=== PATIENT | female | born 1935 | race Caucasian/White ===

== ENCOUNTER 2020-01-04 14:38 | Outpatient (CLI) | payer MEDICARE, OTHER, SELFPAY ==
--- NOTE | 2020-01-04 15:00 | USCV_ITS ---
Linh Mares Age: 84 Gender: F : 1935 Exam Date: 01/04/2020 14:34 Ordering Phys: Linh RamirezP-C STEREO COMPILER Technologist: Heather Couch Exam Location: [facility] [place] Indication: RIGHT ARM SWELLING HISTORY: Upper extremity swelling. PROCEDURES: Venous duplex imaging was performed in only the right upper extremity. The following venous structures were evaluated: internal jugular vein, subclavian vein, axillary vein, and brachial veins. In addition, the basilic vein, cephalic vein, radial vein, and ulnar vein. FINDINGS: Normal 2-D, color Doppler and phasicity noted in ther right upper extremity venous system extending from the right internal jugular vein through the main forearm. No thrombosis or occlusion noted. CONCLUSIONS No evidence of thrombus of the right upper extremity veins. Jt Arenas MD (Electronically Signed) Final Date: 04 January 2020 17:29 S
== END 2020-01-04 14:39 | disposition home or self-care (01) ==
LOC: US 14:39
PROVIDERS: PCP Nurse Practitioner Family; Visit Provider Nurse Practitioner Family
DX: R22.31 Localized swelling, mass and lump, right upper limb (principal)
CPT/HCPCS: 93971

== ENCOUNTER 2021-02-12 17:55 | Observation (INO) | payer MEDICARE, OTHER, SELFPAY ==
[2021-02-12 18:21] VITALS: BP 132/67; PULSE 63; RESP 18; TEMP 36.6; O2SAT 97
--- NOTE | 2021-02-12 18:27 | ECG_ITS ---
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 Measurements Intervals [place] Rate: 65 P: 21 OK: 173 QRS: -32 QRSD: 141 T: 10 QT: 460 QTc: 479 Interpretive Statements ELECTRONIC VENTRICULAR [id number] V paced rhythm ABNORMAL RHYTHM ECG Compared to ECG 02/12/2021 18:11:37 No significant changes Electronically Signed On 02-13-2021 22:44:17 CDT by Bravo Amos M.D. [id number]
--- NOTE | 2021-02-12 18:27 | XRR_ITS ---
PROCEDURE INFORMATION: Exam: XR Chest Exam date and time: 02/12/2021 6:27 PM Age: 85 years old Clinical indication: Pain; Chest pressure; Additional info: Chest pain TECHNIQUE: Imaging protocol: XR of the chest. Views: 1 view. COMPARISON: No relevant prior studies available. FINDINGS: Tubes, catheters and devices: Intact dual lead left subclavian pacemaker. Lungs: Mild interstitial prominence in both lungs is likely chronic change. No consolidation. Pleural spaces: Unremarkable. No pleural effusion. No pneumothorax. Heart/Mediastinum: Unremarkable. No cardiomegaly. Vasculature: Partially visualized IVC filter. Bones/joints: Sternotomy wires. Degenerative changes of the shoulder joints. XR/XR chest 1V portable [id number] IMPRESSION: No acute findings. Radiation Dose CTDIVOL = (mGy): DLP = (mGy-cm)
[2021-02-12] MEDS: nitroglycerin 1 gm/inch oint Pkt 0.5 INCH TOPICAL (18:44)
[2021-02-12 18:45] LABS: Basophils # 0.1 10^3/uL (0.0-0.1); Basophils % 1.3 %; Eosinophils # 0.1 10^3/uL (0.0-0.8); Eosinophils % 1.1 %; Hemoglobin 12.2 g/dL (11.5-15.3); Lymphocytes % 32.3 %; Mean Corpuscular Hemoglobin 29.9 pg (28.0-34.0); Mean Corpuscular Volume 90.7 fl (81-99); Mean Platelet Volume 11.7 fL (7.4-10.4); Monocytes # 0.6 10^3/uL (0.2-0.9); Monocytes % 9.2 %; Neutrophils # 3.54 10^3/uL (1.8-7.7); Neutrophils % 55.9 %; Nucleated Red Blood Cells % 0 %; Platelet Count 146 10^3/cmm (130-400); Red Blood Count 4.08 10^6/uL (4.1-5.3); Red Cell Distribution Width 15.1 % (12.1-15.1); White Blood Count 6.3 10^3/uL (4.0-10.0)
--- NOTE | 2021-02-12 18:49 | ED_ITS ---
HPI - General Adult General: Chief complaint: Chest Pain Stated complaint: CHEST PRESSURE L SIDE Time Seen by Provider: 02/12/21 18:25 History of Present Illness: HPI narrative: CC: Chest Pain HPI: This is a [85]yo patient hx of HTN, CAD s/ p stent x 4, pacemaker dependence, HTN presenting to the ED w/ acute onset intermittent substernal sharp chest pain x3 episodes lasting for 5-10 minutes at a time around 4pm while cleaning her house. Pain is a very typical prior presentation of cardiac chest pain. Has exertional fatigue for the last 5 days. Pain is not tearing in nature and does not radiate to the back. Endorse nausea but has no associated with vo miting or decreased PO intake. Denies any recent sympathomimetic drug use. Patient denies any cough. Denies palpitations, syncope symptoms. Pain not positional. Norecent immobility, surgery, unilateral leg swelling, or prior PE. Patient denies any orthopnea, paroxysmal nocturnal dyspnea, weight gain, or increased leg swellings. Onset: 4 hrs ago Duration: ongoing for the last 4 days Location: home Severity: moderate Review of Systems Narrative: Constitutional: No fever, no chills. +fatigue HEENT: No vision changes, no sore throat. CV: +chest pain, no palpitations. PULM: No cough, no dyspnea. GI: No abdominal pain, no N/V/D. : No dysuria, no frequency, no hematuria. MSKEL: No arthralgias, no edema. SKIN: No new rashes, no lesions. NEURO: No headache, no focal weakness. HEME: No easy bleeding or bruising. PSYCH: No change in mood or affect. [facility] ED PFSH: Medical History CAD (coronary artery disease) Hypertension Social History Smoking and tobacco status: never smoked Physical Exam Narrative: EXAM NARRATIVE: Head: Atraumatic, normocephalic Eyes: PERRL, EOMI, conjunctiva without injection ENT: Throat without erythema, lesions or exudate, MMM NECK: Supple, trachea midline, no JVD LUNGS: LCTA CV: RRR, S1,S2, no murmurs, rubs, gallops. 2+ peripheral pulses in UEs ABDOMEN: Soft, nontender, nondistended, BS x4, no rigidity, no guarding, no rebound EXTREMITY: Normal ROM, no pitting edema, no calf tenderness to palpation SKIN: No rash or erythema NEURO: Awake and alert. No focal motor deficits. PSYCH: Normal mood and affect. Course Vital Signs: Vital signs: Vital Signs Temperature 97.7 F 02/13/21 16:46 Pulse Rate 67 02/13/21 16:46 Respiratory Rate 16 02/13/21 16:46 Blood Pressure 138/66 02/13/21 16:46 Pulse Oximetry 96 02/13/21 16:46 MDM - General Adult MDM Narrative: Medical decision making narrative: [85]yo patient w/ hx of CAD s/p stent x 4, HTN, pacemaker dependence presenting to the ED With acute substernal chest pain 2 hrs ago with hx of similar prior pain. Currently mild chest pain 2/10. Given History And Exam today I have moderate to high suspicion for ACS/UA/NSTEMI. Today, I have NO suspicion for pneumothorax, pneumonia, pulmonary embolus, tamponade, aortic dissection or other emergent problem as a cause for this presentation. ECG did not show any signs of acute STEMI. Workup: ECG, CXR, CBC, BMP, Troponin, dimer Intervention: ASA 325mg by EMS, nitroglycerin ointment Findings: ECG: No overt evidence of STEMI, no hyperacute T waves, localizable STD or T wave inversions. No evidence of Brugada?s sign, delta wave, epsilon wave, significantly prolonged QTc, or malignant arrhythmia. No Q waves. Troponin x 1 of 17, will trend second Dimer of 1.16, will order CTA for dissection/PE Other Labs unremarkable for emergent problems. CXR: Without PTX, PNA, or widened mediastinum [7:45pm] On reassessment, the patient is currently chest pain free. S/p aspirin 325mg by EMS. Will defer antiplatelet and anticoagulation to the inpatient team. Pending repeat troponin. HDS, AAOx3, no signs of respiratory distress, without refractory chest pain, no signs of malignant dysrhythmia on monitor car operator (VT/VF). CTA showed ascending thoracic aneurysm. Disposition: Inpatient admission. Lab Data: Labs: Lab Results 10/05/21 10/05/21 10/05/21 18:15 18:15 18:15 WBC 6.3 10^3/uL 10^3/ uL (4.0-10.0) RBC 4.08 10^6/uL L 10 ^6/uL (4.1-5.3) Hgb 12.2 g/dL g/dL (11.5-15.3) Hct 37.0 % % (37.0-47.0) MCV 90.7 fl fl (81-99) MCH 29.9 pg pg (28.0-34.0) MCHC 33.0 g/dL g/dL (30.0-36.0) RDW 15.1 % % (12.1-15.1) Plt Count 146 10^3/cmm 10^3 /cmm (130-400) MPV 11.7 fL H fL (7.4-10.4) Neut % (Auto) 55.9 % % Lymph % (Auto) 32.3 % % Kern % (Auto) 9.2 % % Eos % (Auto) 1.1 % % Baso % (Auto) 1.3 % % Neut # (Auto) 3.54 10^3/uL 10^3 /uL (1.8-7.7) Lymph # (Auto) 2.0 10^3/uL 10^3/ uL (0.8-4.8) Kern # (Auto) 0.6 10^3/uL 10^3/ uL (0.2-0.9) Eos # (Auto) 0.1 10^3/uL 10^3/ uL (0.0-0.8) Baso # (Auto) 0.1 10^3/uL 10^3/ uL (0.0-0.1) Nucleated RBC % (a uto) 0 % % Nucleated RBCs # 0.0 /100WBC /100W BC D-Dimer 1.41 ug/mIFEU H u g/mIFEU (0-0.59) Sodium 133 mmol/L L mmol /L (136-145) Potassium 3.6 mmol/L mmol/L (3.5-5.1) Chloride 94 mmol/L L mmol/ L (98-107) Carbon Dioxide 30 mmol/L H mmol/ L (22-29) Anion Gap 12.6 (5-19) BUN 22 mg/dL mg/dL (8-23) Creatinine 0.9 mg/dL mg/dL (0.5-0.9) GFR Calculation Not Reportable Glucose 83 mg/dL mg/dL (65-115) Calculated Osmolal ity 278 mOsm/kg L mOs m/kg (285-295) Calcium 8.9 mg/dL mg/dL (8.5-10.5) Troponin T Baselin e 02/12/21 18:15 WBC RBC Hgb Hct MCV MCH MCHC RDW Plt Count MPV Neut % (Auto) Lymph % (Auto) Kern % (Auto) Eos % (Auto) Baso % (Auto) Neut # (Auto) Lymph # (Auto) Kern # (Auto) Eos # (Auto) Baso # (Auto) Nucleated RBC % (a uto) Nucleated RBCs # D-Dimer Sodium Potassium Chloride Carbon Dioxide Anion Gap BUN Creatinine GFR Calculation Glucose Calculated Osmolal ity Calcium Troponin T Baselin e 16 ng/L H ng/L (0-10) Imaging Data^: Other Imaging: Radiologist's impression: [employer] [address]EY Scan ReportSigned Patient: Linh Mares AUnit #: [id number]: 8Acct#:[id number]/Sex: 85 / FADM Date: 02/12/21Loc: ERRoom/Bed:Attending Dr: Ordering Provider/Ordering MD: Yaneth Galarza MD Date of Service: 02/12/21 Procedure(s): CT angio chest PE prot [id number] Accession Number(s): [id number] Report Number: [id number] PROCEDURE INFORMATION: Exam: CTA Chest With Contrast Exam date and time: 02/12/2021 6:51 PM Age: 85 years old Clinical indication: Abnormal findings; Abnormal diagnostic tests; Elevated d-dimer; Prior surgery; Additional info: Evaluate for pe TECHNIQUE: Imaging protocol: Computed tomographic angiography of the chest with contrast. 3D rendering (Not supervised by radiologist): MIP and/or 3D reconstructed images were created by the technologist. Radiation optimization: All CT scans at this facility use at least one of these dose optimization techniques: automated exposure control; mA and/or kV adjustment per patient size (includes targeted exams where dose is matched to clinical indication); or iterative reconstruction. Contrast material: VISI 320; Contrast volume: 69 ml; Contrast route: INTRAVENOUS (IV); COMPARISON: CR (CHEST, ) 02/12/2021 6:34 PM RADIATION DOSE METRICS: Total DLP (mGy-cm): 500.6 FINDINGS: Tubes, catheters and devices: Left subclavian pacemaker. Pulmonary arteries: Normal. No pulmonary emboli. Aorta: 4.3 cm aneurysmal dilatation of the ascending thoracic aorta. No dissection. Lungs: Mild atelectasis in the lung bases. The lungs are otherwise clear. No consolidation or ground-glass opacities. Pleural spaces: Unremarkable. No pneumothorax. No pleural effusion. Heart: Coronary artery calcifications. Heart size is normal. Aortic valve prosthesis. Mitral annulus calcifications. Lymph nodes: Unremarkable. No enlarged lymph nodes. Diaphragm: Small hiatal hernia. Gallbladder and bile ducts: Cholecystectomy. The bile ducts are within normal limits. Kidneys and ureters: Small nonobstructing bilateral renal calculi. Bones/joints: Median sternotomy changes. Mild T3, T5, and T6 compression fractures. Soft tissues: Soft tissue calcifications or ossifications anterior to the sternum. CT/CT angio chest PE protcl [id number] IMPRESSION: 1. No evidence for pulmonary embolus or other acute finding. 2. 4.3 cm aneurysmal dilatation of the ascending thoracic aorta. No dissection. 3. Mild T3, T5, and T6 compression fractures. These are age indeterminate but likely chronic. Radiation Dose CTDIVOL = (mGy): DLP = 500.6 (mGy-cm) Dictated By:Agnes Fraga By:Agnes Fraga Date/Time:02/12/211999DD/ 185 [facility] [place] [id number] ReportSigned Patient: Linh Mares AUnit #: [id number]: 1935cct#:[id number]/Sex: 85 / FADM Date: 02/12/21Loc: ERRoom/Bed:Attending Dr: Ordering Provider/Ordering MD: Yaneth Galarza MD Date of Service: 02/12/21 Procedure(s): XR chest 1V portable [id number] Accession Number(s): [id number] Report Number: [id number] PROCEDURE INFORMATION: Exam: XR Chest Exam date and time: 02/12/2021 6:27 PM Age: 85 years old Clinical indication: Pain; Chest pressure; Additional info: Chest pain TECHNIQUE: Imaging protocol: XR of the chest. Views: 1 view. COMPARISON: No relevant prior studies available. FINDINGS: Tubes, catheters and devices: Intact dual lead left subclavian pacemaker. Lungs: Mild interstitial prominence in both lungs is likely chronic change. No consolidation. Pleural spaces: Unremarkable. No pleural effusion. No pneumothorax. Heart/Mediastinum: Unremarkable. No cardiomegaly. Vasculature: Partially visualized IVC filter. Bones/joints: Sternotomy wires. Degenerative changes of the shoulder joints. XR/XR chest 1V portable [id number] IMPRESSION: No acute findings. Radiation Dose CTDIVOL = (mGy): DLP = (mGy-cm) Dictated By:Agnes Fraga By:Agnes Fraga Date/Time:02/12/21 1912DD/ Discharge Plan Discharge Patient Disposition: Admitted As Inpatient Admit Provider: Felisha Martinez Clinical Impression: Chest pain, Angina pectoris, unstable, Aneurysm, thoracic aortic Condition: Stable Discharge Diet: Cardiac Discharge Activity: Increase activity as tolerated Coding Level of Care Code ED Supervisor Incising for Ross Ladd
[2021-02-12 18:50] LABS: D Dimer 1.41 ug/mIFEU (0-0.59)
[2021-02-12 18:54] LABS: Troponin(5th) Baseline 16 ng/L (0-10)
[2021-02-12 18:55] LABS: Blood Urea Nitrogen 22 mg/dL (8-23); Calcium 8.9 mg/dL (8.5-10.5); Carbon Dioxide 30 mmol/L (22-29); Chloride 94 mmol/L (98-107); Glucose 83 mg/dL (65-115); Osmolality Calculated 278 mOsm/kg (285-295); Sodium 133 mmol/L (136-145)
[2021-02-12 18:56] LABS: Anion Gap 12.6 (5-19); Potassium 3.6 mmol/L (3.5-5.1)
[2021-02-12] MEDS: iodixanol 320 mg/mL 100mL Btl IV (19:32)
--- NOTE | 2021-02-12 20:27 | ECG_ITS ---
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 Measurements Intervals [place] Rate: 65 P: -3 AL: 135 QRS: -37 QRSD: 142 T: 10 QT: 434 QTc: 452 Interpretive Statements ELECTRONIC VENTRICULAR PACEMAKER ABNORMAL RHYTHM ECG No previous ECG available for comparison Electronically Signed On 02-13-2021 23:04:44 CDT by Bravo Amos M.D. [email or web address] [email or web address] [email or web address]-iT [id number]
[2021-02-12 20:47] VITALS: BP 146/91; PULSE 70; RESP 18; O2SAT 96
[2021-02-12 20:52] LABS: Troponin 5 2HR 15.98 ng/L (0-10)
[2021-02-12 20:55] VITALS: BP 152/84; PULSE 64; RESP 16; TEMP 36.8; O2SAT 93
[2021-02-12 21:06] VITALS: BMI 34.0
[2021-02-12 21:09] LABS: Troponin 5 2HR Delta -0.02 ABS# (0-10)
[2021-02-12 22:00] VITALS: PULSE 69
--- NOTE | 2021-02-12 22:29 | PM.HP ---
Providers/Chief Complaint Admitting Physician: Felisha Martinez MD Chief Complaint: CHEST PRESSURE L SIDE History of Present Illness Linh Mares is a 85 year old female with past medical history of hypertension, CAD, presenting with left-sided chest pain which started this evening at around 4 PM while patient was cleaning her house. Pain is nonradiating, currently relieved after receiving aspirin in the ER. CTA negative for PE. Ascending thoracic aortic aneurysm noted, no signs of dissection. EKG today. Troponin series without significant delta at 2 hrs. Review of Systems General: Reports: 10 or more systems reviewed and unremarkable except in HPI and below Const: Denies: fever(s), chills or body aches Eyes: Denies: change in vision, blurry vision or photophobia ENMT: Reports: hoarseness; Denies: throat pain, enlarged tonsils, odynophagia or nasal congestion Card: Denies: chest pain, palpitations, irregular heart rhythm, edema, swelling of feet/ankles, lightheadedness, pre-syncope, dyspnea on exertion or orthopnea Resp: Denies: dyspnea, productive cough, non-productive cough, wheezing, stridor, pain on inspiration, change in phlegm color, hemoptysis or chest congestion GI: Denies: abdominal pain, nausea, vomiting, hematemesis, coffee ground emesis, dysphagia, heartburn, diarrhea, constipation, GI cramping, change in stool character, hematochezia or melena : Denies: flank pain, difficulty voiding, dysuria, urinary frequency, urinary urgency, urinary hesitancy or hematuria Musc: Denies: neck pain, back pain, extremity pain, joint swelling, joint warmth or deformity Neuro: Denies: headache(s), numbness in extremities, weakness in extremities, sensory changes, difficulty walking, frequent falls, dizziness, vertigo, behavioral changes, Slurred speech present or seizure-like activity Psych: Denies: anxiety, depression, suicidal ideation or homicidal ideation Endo: Denies: polyuria, polydipsia, tired all the time, cold intolerance or hot flashes Cipriano/Lymph: Denies: easy bruising or easy bleeding Medications/Allergies Home Medications Medication Instructions Recorded Confirmed Last Taken Type valacyclovir 500 mg tablet 500 mg PO BID 7 Days #14 tab 12/20/19 10/24/20 Unknown Rx amlodipine 5 mg tablet 5 mg PO DAILY 12/29/19 10/24/20 Unknown History clopidogrel 75 mg tablet 75 mg PO DAILY 12/29/19 10/24/20 Unknown History metoprolol succinate 25 mg 25 mg PO DAILY 12/29/19 10/24/20 Unknown History tablet,extended release 24 hr rivaroxaban 15 mg tablet 15 mg PO DAILY 12/29/19 10/24/20 Unknown History Allergies Allergy/AdvReac Type Severity Reaction Status Date / Time diphenhydramine Allergy Unknown Verified 01/26/20 13:05 [From Benadryl] Sulfa (Sulfonamide Allergy Unknown Verified 01/26/20 13:05 Antibiotics) PFSH Acute PFSH: Medical History CAD (coronary artery disease) Hypertension Social History Smoking and tobacco status: never smoked Vitals/I&O/Wt Last Vital Signs Temp 98.2 F 02/12/21 20:55 Pulse 64 02/12/21 20:55 Resp 16 02/12/21 20:55 BP 152/84 02/12/21 20:55 Pulse Ox 93 02/12/21 20:55 Weight last 48 hrs Weight 81.692 kg Physical Exam Narrative: EXAM NARRATIVE: General: No acute distress, AO x3 HEENT: PERRLA, pupils bilaterally equal and reactive, pallors not present Chest: Normal vesicular breath sounds, no added sounds, equal good air entry bilaterally CVS: S1-S2 regular, no murmurs, no tachycardia, no gallops, no rubs Abdomen: Soft, nontender, no organomegaly, bowel sounds present Neuro: No focal deficits, no facial deformity, AO x3, power 5/5 in all limbs Data : 02/12/21 18:15 02/12/21 18:15 A&P Assessment and plan (1) Chest pain: Chest pain in a patient with past medical history of hypertension, CAD, cardiac risk factors raises concern for angina. EKG currently with paced rhythm, troponin series without significant delta at 2 hours. Continue to trend troponins at 6-hour. As needed morphine, sublingual nitro for pain management. Troponin delta negative at 6-hour, will likely proceed with stress test in the morning. Xarelto, Plavix, metoprolol Status: Acute (2) Angina pectoris, unstable: Status: Acute Attestations Medical Necessity Statement*: Observation admission for chest pain, concern for angina, likely stress test in a.m. Coding Level of Care Code Acute Sample Carrier for Ross Ladd Diagnoses Chest pain R07.9 Angina pectoris, unstable I20.0
[2021-02-13] VITALS (7 sets, daily range): BP systolic 138–162; BP diastolic 66–84; PULSE 62–74; RESP 16–17; TEMP 36.4–36.9; O2SAT 93–98
[2021-02-13 01:27] LABS: Troponin 5 6HR 18.02 ng/L (0-10); Troponin 5 6HR Delta 2.02 ng/L (0-12)
--- NOTE | 2021-02-13 07:23 | ECG_ITS ---
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 Interpretive Statements NAME OF STUDY: LEXISCAN SESTAMIBI STRESS TEST INDICATION: Chest Pain PROCEDURE: At the baseline, the blood pressure was 130/73 mmHg with a heart rate of 60 bpm. The electrocardiogram showed normal sinus rhythm, V paced rhythm. The Lexiscan was infused over a period of 20 seconds. A total of 0.4 milligrams of Lexiscan was infused. The stress phase was continued for a total of 5 minutes. Heart rate at the end of the stress phase was 70 bpm with a blood pressure of 144/75 mmHg. The EKG at the peak infusion revealed no significant ST-T wave changes. The study was terminated due to protocol completion. Sestamibi was injected 20 seconds after the Lexiscan infusion. Blood pressure at the end of the recovery phase was 136/66 mmHg with a heart rate of 64 beats per minute. CONCLUSION: 1. Uninterpretable EKG with the LexiScan infusion given paced rhythm. 2. No LexiScan induced chest pain or cardiac arrhythmia. 3. Normal blood pressure and heart rate response. 4. Sestamibi/sestamibi perfusion scan pending; see separate report. Electronically Signed On 02-13-2021 12:30:28 CDT by Aby Delvalle M.D. [email or web address] Microstar[facility]park[facility].[email or web address]/store/OM/[id number]
[2021-02-13] MEDS: regadenoson 0.4 Mg/5 ml Syringe IVP (08:02)
--- NOTE | 2021-02-13 09:51 | PC.CHAP ---
Pastoral Care Encounter/Spiritual Assessment Type of Contact [] Declined interactive multimedia designer visit [] Patient/Family/Request visit [] Outpatient visit [] Follow-up visit [] Physician referral [] Code/Alert [x] Routine visit [] Staff referral [] Actively dying [] Patient sleeping [] Family support [] [x] Out of room [] Palliative care [] [] Receiving care in room [] Pre-surgical visit [] Trauma [] Long length of stay [] ICU visit [] Other: Relational/Emotional Strength [] Patient feels connected with others/family/visitors/staff [] Distress [] Loneliness/isolation [] Abandonment Spirituality of Patient [] Person of Carole [] Attends Church of their Carole [] Believes in Prayer [] Reads Bible or Pentecostalism materials [] There are Spiritual issues to be addressed Weed Controller Interventions [] Prayer [] Active listening [] Non-anxious presence [] Spiritual/emotional support [] Crisis/trauma care [] Spiritual counseling [] Bereavement support [] Provided bereavement packet [] Provided Bible/devotional materials [] Provided toy/stuffed animal, coloring book to patient or family member [] Provided Communion [] Anointing/[place] [] Salvation [] Completed spiritual assessment [] Other: Impact on Illness or Injury [] Angry [] Fearful [] Anxious [] Often cries [] Exhaustion [] Unable to work [] Unable to attend pentecostalism [] Unable to walk/stand [] Unable to read [] Unable to drive [] Unable to eat/drink [] Unable to sleep [] Unable to be with family [] Patient intubated [] Other: Summary Time spent with patient
[2021-02-13] MEDS: valACYclovir 1,000 mg Tablet 500 MG PO (10:07)
[2021-02-13] MEDS: metoprolol succinate ER (24 HR) 25 mg Tablet PO (10:08)
[2021-02-13] MEDS: clopidogrel 75 mg Tablet PO (10:08)
[2021-02-13] MEDS: pantoprazole DR 40 mg Tablet PO (10:08)
[2021-02-13] MEDS: amlodipine 5 mg Tablet PO (10:08)
[2021-02-13] MEDS: rivaroxaban 10 mg Tablet 15 MG PO (10:12)
--- NOTE | 2021-02-13 12:03 | PC.PHAR ---
Addendum entered by Elly Hurtado 02/13/21 12:12: pt states she thought she was taking plavix [facility] and [facility] filled on 09/17/2019 30d/s pt then states then she must not be taking Original Note: pt states she takes care of her own medications-pt states she is unsure of all the names of what medications she takes-pt states she is taking detrol [facility] filled since 08/22/20 90d/s [facility] states the dr landis the detrol-pt states she takes what [facility] sends her and what [facility] has filled for her recently-
--- NOTE | 2021-02-13 13:28 | P.DS_ITS ---
Discharge Providers Date of Admission: 02/12/21 19:46 Date of Discharge: February 13, 2021 Attending Provider at Admission: Felisha Martinez MD Attending Provider at Discharge: Hank Peters MD Diagnoses at Discharge Discharge Diagnosis (1) Chest pain: Status: Acute (2) Angina pectoris, unstable: Status: Acute Reason for Visit Reason for Visit: CHEST PRESSURE L SIDE Hospital Course Hospital Course Linh Mares is a 85 year old female with past medical history of hyp ertension, CAD, presenting with left-sided chest pain which started this evening at around 4 PM while patient was cleaning her house. Pain is nonradiating, currently relieved after receiving aspirin in the ER. CTA negative for PE. Ascending thoracic aortic aneurysm noted, no signs of dissection. EKG today. Troponin series without significant delta. Patient went for Lexiscan cardiac stress test which was unremarkable, for ascending thoracic aortic aneurysm she will be prescribed atorvastatin, aspirin and Plavix was avoided because she is already on Xarelto, to continue metoprolol succinate and lisinopril. Ejection fraction 88% without significant valvular regurgitation, hemoglobin 12. We will give her outpatient referral for closer surveillance of aortic aneurysm. Physical Exam Narrative: EXAM NARRATIVE: elderly female No active symptoms S1, S2 sinus rhythm Soft abdomen No edema of legs Awake alert 20x3 GCS 15 Discharge Data Data Completed and Pending: Completed Studies During Hospitalization Category Date Time Status CT angio chest PE protcl [id number] Urge nt Cat Scan 02/12/21 18:51 [address] st MIBI [Sestamibi Stress Test Reque st Exams 02/13/21 07:23 Completed ] Routine XR chest 1V molly ble [id number] Urgent Exams 02/12/21 18:27 Completed NM deepthi perf SPECT r/s* [id number] Routin e Nuc Med 02/13/21 22:32 Completed Pending at discharge Category Date Time Status Sestamibi Stress Test Request Routi ne Exams 02/12/21 22:30 Ordered Labs from last 24 hours 02/13/21 02/12/21 02/12/21 00:36 20:00 18:15 WBC RBC Hgb Hct MCV MCH MCHC RDW Plt Count MPV Neut % (Auto) Lymph % (Auto) [place] % (Auto) Eos % (Auto) Baso % (Auto) Neut # (Auto) Lymph # (Auto) [place] # (Auto) Eos # (Auto) Baso # (Auto) Nucleated RBC % (a uto) Nucleated RBCs # D-Dimer Sodium Potassium Chloride Carbon Dioxide Anion Gap BUN Creatinine GFR Calculation Glucose Calculated Osmolal ity Calcium Troponin T Baselin e 16 H Troponin T 120 Min joshua 15.98 H Delta Troponin T -0.02 L Troponin T Hi Sens 6Hr 18.02 H Troponin T Hi Sens 6Hr Delta 2.02 02/12/21 02/12/21 02/12/21 18:15 18:15 18:15 WBC 6.3 RBC 4.08 L Hgb 12.2 Hct 37.0 MCV 90.7 MCH 29.9 MCHC 33.0 RDW 15.1 Plt Count 146 MPV 11.7 H Neut % (Auto) 55.9 Lymph % (Auto) 32.3 [place] % (Auto) 9.2 Eos % (Auto) 1.1 Baso % (Auto) 1.3 Neut # (Auto) 3.54 Lymph # (Auto) 2.0 [place] # (Auto) 0.6 Eos # (Auto) 0.1 Baso # (Auto) 0.1 Nucleated RBC % (a uto) 0 Nucleated RBCs # 0.0 D-Dimer 1.41 H Sodium 133 L Potassium 3.6 Chloride 94 L Carbon Dioxide 30 H Anion Gap 12.6 BUN 22 Creatinine 0.9 GFR Calculation Not Reportable Glucose 83 Calculated Osmolal ity 278 L Calcium 8.9 Troponin T Baselin e Troponin T 120 Min j[place] Delta Troponin T Troponin T Hi Sens 6Hr Troponin T Hi Sens 6Hr Delta Vitals: Last Vital Signs Temp 97.7 F 02/13/21 11:22 Pulse 67 02/13/21 11:22 Resp 16 02/13/21 11:22 BP 138/66 02/13/21 11:22 Pulse Ox 96 02/13/21 11:22 Discharge Plan Discharge Patient Disposition: Home Condition: Stable Prescriptions: New metoprolol succinate 25 mg Tablet Extended Release 24 Hr 25 mg PO DAILY 30 Days Qty: 30 RF: 0 atorvastatin 20 mg tablet 20 mg PO DAILY Qty: 30 RF: 0 lisinopril 5 mg tablet 5 mg PO DAILY Qty: 30 RF: 0 Continued Xarelto 15 mg tablet 15 mg PO DAILY RF: 0 tizanidine 2 mg tablet 2 mg PO BEDTIME PRN (Reason: Muscle Spasm) RF: 0 tolterodine [Detrol LA] 4 mg capsule,extended release 24hr 4 mg PO DAILY RF: 0 isosorbide mononitrate 120 mg tablet extended release 24 hr 120 mg PO DAILY RF: 0 potassium chloride 20 mEq tablet,ER particles/crystals 20 meq PO DAILY RF: 0 trazodone 100 mg Tablet 100 mg PO BEDTIME RF: 0 folic acid 1 mg tablet 1 mg PO DAILY RF: 0 montelukast 10 mg tablet 10 mg PO DAILY RF: 0 furosemide 20 mg tablet 20 mg PO DAILY RF: 0 fluoxetine 20 mg capsule 20 mg PO QAM RF: 0 multivitamin Tablet 1 tab PO DAILY RF: 0 Discharge Orders: Discharge Order (Routine); Ordered 02/13/21 Ordered By: Hank Peters Referrals: Linh Ramirez FNP [Nurse Practitioner] - 02/20/21 10:00 am Discharge Diet: Cardiac Discharge Activity: Increase activity as tolerated Patient Instructions: Opioid Safety Discharge Attestations Time Spent in Discharge Care*: less than 30 min Quality Metrics Clinical Quality Measures During this hospital stay, did patient experience: None Coding Level of Care Code Acute Chg FW ZA note Diagnoses Chest pain R07.9 Angina pectoris, unstable I20.0
--- NOTE | 2021-02-13 16:32 | PC.NURSE ---
patient verbalized understanding of discharge instructions, follow up appointments, and home medications. patient contacted her primary cost analyst prior to discharge for a follow up appointment. patient stated that she would need her records sent to Dr. Mahajan with [place]. record release form was filled out by patient.
--- NOTE | 2021-02-13 22:32 | NMCV_ITS ---
NM deepthi perf SPECT r/s* [id number] Linh Mares Age: 85 Gender: F : 1935 Exam Date: 02/13/2021 07:20 Ordering Phys: Felisha Martinez MD Technologist: BALJEET Cook Exam Location: [facility] Indications: LEFT SIDED CHEST PRESSURE STRESS TEST Please see separate stress test report in [facility] for full findings IMAGE PROTOCOL Rest/Stress 1 Lexiscan Day Radiopharmaceutical Dose (mCi) Administration Site Administered by Rest: Tc-99m 10.7 IV BALJEET Subramanian Sestamibi Stress:Tc-99m 32.9 IV BALJEET Subramanian Sestamibi Rest: 13-Feb-2021 60 Discovery 630 Stress: 13-Feb-2021 30 Discovery 630 0.4mg Lexiscan. Supine position only as patient was unable to lay prone. SPECT RESULTS Technical Quality: Good Raw Data Analysis: Normal Image Corrections: No attenuation or motion correction applied Summed Stress Score: 2 Summed Rest Score: 3 Summed Difference Score: 1 PERFUSION FINDINGS Small size perfusion abnormality of mild severity of mid inferolateral wall on rest images with somewhat improved tracer uptake on stress images. This is suggestive of attenuation artifact. FUNCTIONAL RESULTS (calculated via Gated SPECT) Stress Image LV EF (%): 88 Stress EDV (mL):52 TID: 1.21 Stress ESV (mL):6 FUNCTIONAL FINDINGS: The left ventricle is normal in size. Transient Ischemia Dilatation of 1.2. There is hyperdynamic left ventricular global systolic function. The left ventricular ejection fraction is normal with a value of 88% (likely overestimated due to small left ventricle cavity size). There is hyperdynamic left ventricular wall thickening. IMPRESSIONS 1. Myocardial perfusion imaging is normal. Attenuation artifact in mid inferolateral wall. 2. Overall left ventricular systolic function is normal without regional wall motion abnormalities. 3. The left ventricular ejection fraction is hyperdynamic with a value of 88% 4. Transient Ischemia Dilatation of 1.2. This may represent hypertensive response/subendocardial ischemia. 5. No prior similar studies to compare. Aby Delvalle MD (Electronically Signed) Final Date: 13 February 2021 12:35 S
--- NOTE | 2021-02-14 11:22 | PC.SOCIAL ---
discharge follow up call made, spoke with patient. she denies chest pain or sob. she reports she just feels blah patients daughter will picker packer her medications today from the pharmacy. discussed dosages and medications with patient. patient is aware she has an aneurysm, and to not be pulling or lifting. patient is taking her blood pressure and recording. she is aware that the target blood pressure is 140 or less for top number and heart rate of 80 or less. nurse will make follow up appointment with pcp and systems support specialist for patient.
--- NOTE | 2021-02-20 07:49 | PC.SOCIAL ---
spoke with patient and cardiology did call patient and set up a follow up appointment for march.
== END 2021-02-13 16:40 | disposition home or self-care (01) ==
LOC: ER 20:07 → MEDSURG 20:32
PROVIDERS: Admitting Provider Student in an Organized Health Care Education/Training Program; Emergency Provider Emergency Medicine; Visit Provider Internal Medicine
DX: I25.110 Atherosclerotic heart disease of native coronary artery with unstable angina pectoris (principal); I10 Essential (primary) hypertension
CPT/HCPCS: 36415; 71045; 71275; 78452; 80048; 84484; 85025; 85378; 93005; 93017; 99285; A9500; G0378; J2785; Q9967

== ENCOUNTER 2022-12-22 12:06 | Emergency (ER) | payer MEDICARE, OTHER, SELFPAY ==
[2022-12-22 12:08] VITALS: BP 180/109; PULSE 68; RESP 18; TEMP 36.5; O2SAT 94; BMI 33.2
--- NOTE | 2022-12-22 12:16 | ECG_ITS ---
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 Measurements Intervals [place] Rate: 66 P: 29 MA: 152 QRS: -25 QRSD: 142 T: 40 QT: 451 QTc: 475 Interpretive Statements ELECTRONIC VENTRICULAR PACEMAKER ABNORMAL RHYTHM ECG Compared to ECG 02/12/2021 21:07:49 No significant changes Electronically Signed On 12-22-2022 14:26:01 CDT by Malachi Ford M.D. [id number]
--- NOTE | 2022-12-22 12:17 | CTR_ITS ---
PROCEDURE INFORMATION: Exam: CT Head Without Contrast Exam date and time: 12/22/2022 12:40 PM Age: 87 years old Clinical indication: Altered mental status/memory loss TECHNIQUE: Imaging protocol: Computed tomography of the head without contrast. Radiation optimization: All CT scans at this facility use at least one of these dose optimization techniques: automated exposure control; mA and/or kV adjustment per patient size (includes targeted exams where dose is matched to clinical indication); or iterative reconstruction. REPORTING DATA: Count of CT and Cardiac NM exams in prior 12 months: This patient has received 0 known CTs and 0 known cardiac nuclear medicine studies in the 12 months prior to the current study. COMPARISON: No relevant prior studies available. RADIATION DOSE METRICS: Total DLP (mGy-cm): 1020.78 FINDINGS: Brain: Diffuse cerebral atrophy. No hemorrhage. Patchy bilateral cerebral white matter hypoattenuation likely on the basis of chronic microvascular ischemic change. Focal cortical loss at the right parietal convexity with associated more focal asymmetric atrophy and underlying white matter hypoattenuation. No mass effect. Intracranial vascular calcifications. Cerebral ventricles: Ventricles are in proportion to the degree of atrophy. Pituitary gland and sella: Partially empty sella. Paranasal sinuses: Visualized sinuses are unremarkable. No fluid levels. Mastoid air cells: Visualized mastoid air cells are well aerated. Bones/joints: Unremarkable. No acute fracture. Soft tissues: Left scalp surgical clips. CT/CT head wo con* [id number] IMPRESSION: 1. No acute findings. 2. Diffuse cerebral atrophy and chronic microvascular ischemic change with suspected chronic or possibly subacute infarct at the right parietal lobe. If patient has persistent focal neurologic symptoms, recommend brain MRI.
--- NOTE | 2022-12-22 12:18 | W.ED.CHESTPA ---
HPI - Chest Pain General: Chief Complaint: Chest Pain Stated Complaint: chest pain Time Seen by Provider: 12/22/22 12:08 Source: patient Mode of arrival: ambulatory History of Present Illness: 87-year-old female who presents to the emergency room with complaints of left-sided chest pain intermittently. 3 days ago she ran out of her medicines and has not been taking them. She will get sharp chest pains that will last a few seconds at most and then resolved. Has not been reproducible with deep inspiration or palpation. Has not been persistent any point she went into see her primary care provider and she was referred to the emergency room via EMS. She not had any fever sweats or chills. MD complaint: chest pain Pertinent past history: coronary artery disease Onset (ago): day(s) Timing of current episode: episodic Prior episodes: Yes Onset: during rest Pain location: substernal Pain radiation: none Severity: mild Quality: sharp Relieving factors: nothing Exacerbating factors: nothing Associated symptoms: Reports no associated symptoms and other; Deny abdominal pain, diaphoresis, dyspnea, fever(s), leg edema, nausea, palpitations, sense of impending doom, syncope or vomiting Treatment prior to arrival: aspirin Review of Systems Const: Denies: fever(s), chills, fatigue, malaise or diaphoresis ENMT: Denies: throat pain, ear or mastoid pain, nasal discharge or nasal congestion Card: Reports: chest pain; Denies: palpitations, irregular heart rhythm, edema or syncope Resp: Denies: dyspnea, productive cough or non-productive cough GI: Denies: abdominal pain, nausea or vomiting : Denies: flank pain, difficulty voiding, dysuria, urinary frequency or urinary urgency Skin/Breast: Denies: rash or pruritus PFS ED PFSH: Medical History Aneurysm, thoracic aortic CAD (coronary artery disease) Hypertension Social History Smoking and tobacco status: never smoked Physical Exam Const: GENERAL APPEARANCE: cooperative and comfortable ORIENTATION/CONSCIOUSNESS: Yes awake, Yes oriented to person, Yes oriented to place and Yes oriented to time HENMT: COMMON NORMALS: normocephalic, atraumatic and hearing grossly normal bilaterally HEAD & SCALP: normocephalic and atraumatic Resp: COMMON NORMALS: normal respiratory effort, No retractions, No use of accessory muscles and clear to auscultation bilaterally AUSCULTATION: clear to auscultation bilaterally Cardio: COMMON NORMALS: regular rate, regular rhythm and No murmurs present (Cardio) RATE: regular rate RHYTHM: regular rhythm GI: COMMON NORMALS: Soft to palpation and No hepatosplenomegaly present AUSCULTATION: Yes normoactive bowel sounds PALPATION: Yes Soft to palpation, No Tenderness to palpation present (GI), No Guarding due to palpation present (GI) and Yes No hepatosplenomegaly present Extremity: COMMON NORMALS: normal to inspection, capillary refill normal, no clubbing, cyanosis or edema, no calf tenderness and no pedal edema Neuro: SENSORIUM/ORIENTATION: Yes oriented to person, Yes oriented to place and Yes oriented to time Skin: COMMON NORMALS: no rashes or lesions noted GENERAL SKIN EXAM: no rashes or lesions noted Course Vital Signs: Vital signs: Vital Signs Temperature 97.7 F 12/22/22 12:08 Pulse Rate 77 12/22/22 15:03 Respiratory Rate 17 12/22/22 14:00 Blood Pressure 111/70 12/22/22 15:03 Pulse Oximetry 94 12/22/22 15:03 Oxygen Delivery Me thod Room Air 12/22/22 15:03 MDM - Chest Pain Medical Decision Making EKG shows a paced rhythm there is no significant ST changes she is not having any further symptoms or symptoms report is not suggestive of cardiac at this time she gets brief spasmodic leg pain that lasts in the range of seconds and resolve spontaneously. Her cardiac enzymes are negative. We will discharge her home to recommend that she takes a baby aspirin daily set up for an outpatient Lexiscan sestamibi stress test. Continue all of her other medications. Medical Records I reviewed the patient's medical records. Lab Data I reviewed the patient's lab results. 12/22/22 12:18 12/22/22 12:[address] 12/22/22 12:17 IMPRESSION: 1. No acute findings. 2. Diffuse cerebral atrophy and chronic microvascular ischemic change with suspected chronic or possibly subacute infarct at the right parietal lobe. If patient has persistent focal neurologic symptoms, recommend brain MRI. Chest X-Ray 12/22/22 12:57 IMPRESSION: 1. No acute pulmonary findings. 2. Enlarged cardiac silhouette with postsurgical changes. Correlate with cardiac evaluation, to include consideration for echocardiography. Laboratory Results WBC 6.5 10^3/uL (4.0-10.0) 12/22/22 12:18 RBC 5.06 10^6/uL (4.1-5.3) 12/22/22 12:18 Hgb 15.3 g/dL (11.5-15.3) 12/22/22 12:18 Hct 46.3 % (37.0-47.0) 12/22/22 12:18 MCV 91.5 fl (81-99) 12/22/22 12:18 MCH 30.2 pg (28.0-34.0) 12/22/22 12:18 MCHC 33.0 g/dL (30.0-36.0) 12/22/22 12:18 RDW 13.5 % (12.1-15.1) 12/22/22 12:18 Plt Count 140 10^3/cmm (130-400) 12/22/22 12:18 MPV 11.0 fL (7.4-10.4) H 12/22/22 12:18 Neut % (Auto) 51.6 % 12/22/22 12:18 Lymph % (Auto) 33.8 % 12/22/22 12:18 [place] % (Auto) 9.5 % 12/22/22 12:18 Eos % (Auto) 3.7 % 12/22/22 12:18 Baso % (Auto) 1.2 % 12/22/22 12:18 Neut # (Auto) 3.36 10^3/uL (1.8-7.7) 12/22/22 12:18 Lymph # (Auto) 2.2 10^3/uL (0.8-4.8) 12/22/22 12:18 [place] # (Auto) 0.6 10^3/uL (0.2-0.9) 12/22/22 12:18 Eos # (Auto) 0.2 10^3/uL (0.0-0.8) 12/22/22 12:18 Baso # (Auto) 0.1 10^3/uL (0.0-0.1) 12/22/22 12:18 Nucleated RBC % (auto) 0 % 12/22/22 12:18 Nucleated RBCs # 0.0 /100WBC 12/22/22 12:18 Sodium 137 mmol/L (136-145) 12/22/22 12:18 Potassium 4.5 mmol/L (3.5-5.1) 12/22/22 12:18 Chloride 101 mmol/L (98-107) 12/22/22 12:18 Carbon Dioxide 24 mmol/L (22-29) 12/22/22 12:18 Anion Gap 16.5 (5-19) 12/22/22 12:18 BUN 19 mg/dL (8-23) 12/22/22 12:18 Creatinine 0.9 mg/dL (0.5-0.9) 12/22/22 12:18 GFR Calculation Not Reportable 12/22/22 12:18 Glucose 95 mg/dL (65-115) 12/22/22 12:18 Calculated Osmolality 286 mOsm/kg (285-295) 12/22/22 12:18 Calcium 8.9 mg/dL (8.5-10.5) 12/22/22 12:18 Total Bilirubin 0.8 mg/dL (0.15-1.2) 12/22/22 12:18 AST 18 U/L (0-32) 12/22/22 12:18 ALT 12 U/L (0-33) 12/22/22 12:18 Alkaline Phosphatase 109 U/L (35-105) H 12/22/22 12:18 Creatine Kinase 71 U/L (26-192) 12/22/22 12:18 Troponin T Baseline 19 ng/L (0-10) H 12/22/22 12:18 Troponin T 120 Minute 17.97 ng/L (0-10) H 12/22/22 14:18 Delta Troponin T -1.03 ABS# (0-10) L 12/22/22 14:18 Total Protein 6.5 g/dL (6.6-8.7) L 12/22/22 12:18 Albumin 4.2 g/dL (3.5-5.2) 12/22/22 12:18 Globulin 2.3 g/dL (1.3-4.6) 12/22/22 12:18 Urine Color Yellow (Yellow) 12/22/22 12:14 Urine Appearance Clear (CLEAR) 12/22/22 12:14 Urine pH 5 (5-7) 12/22/22 12:14 Ur Specific [place] 1.010 (1.005-1.030) 12/22/22 12:14 Urine Protein Neg (Negative) 12/22/22 12:14 Urine Glucose (UA) Norm (Normal) 12/22/22 12:14 Urine Ketones Negative (Negative) 12/22/22 12:14 Urine Blood Neg (Negative) 12/22/22 12:14 Urine Nitrate Negative (Negative) 12/22/22 12:14 Urine Bilirubin Neg (Negative) 12/22/22 12:14 Urine Urobilinogen Norm mg/dL (Negative) 12/22/22 12:14 Ur Leukocyte Esterase Negative (Negative) 12/22/22 12:14 Discharge Plan Discharge Patient Disposition: Home Clinical Impression: Atypical chest pain, Hypertension Condition: Stable Prescriptions: New aspirin 81 mg tablet,delayed release (DR/EC) 81 mg PO DAILY Qty: 30 0RF No Action Xarelto 15 mg tablet 15 mg PO DAILY Rx Instructions: must administer with evening meal tizanidine 2 mg tablet 2 mg PO BEDTIME PRN (Reason: Muscle Spasm) tolterodine [Detrol LA] 4 mg capsule,extended release 24hr 4 mg PO DAILY isosorbide mononitrate 120 mg tablet extended release 24 hr 120 mg PO DAILY potassium chloride 20 mEq tablet,ER particles/crystals 20 meq PO DAILY trazodone 100 mg Tablet 100 mg PO BEDTIME folic acid 1 mg tablet 1 mg PO DAILY montelukast 10 mg tablet 10 mg PO DAILY furosemide 20 mg tablet 20 mg PO DAILY multivitamin Tablet 1 tab PO DAILY atorvastatin 20 mg tablet 20 mg PO DAILY Qty: 30 0RF lisinopril 5 mg tablet 5 mg PO DAILY Qty: 30 0RF Discharge Orders: Discharge ED (Routine); Ordered 12/22/22 Ordered By: Vidal Pedro Discharge Diet: Usual diet Discharge Activity: Limit activity as instructed Patient Instructions: Opioid Safety, Pain Management Activity Restrictions/Additional Instructions: You were seen today for atypical chest pain. Your EKGs are paced so they do not show significant abnormality at this time. Cardiac enzymes are unremarkable. Case management will schedule an outpatient stress test Coding Level of Care Code ED Darkroom Technician for Ross Ladd
[2022-12-22 12:27] LABS: Basophils # 0.1 10^3/uL (0.0-0.1); Basophils % 1.2 %; Eosinophils # 0.2 10^3/uL (0.0-0.8); Eosinophils % 3.7 %; Hematocrit 46.3 % (37.0-47.0); Hemoglobin 15.3 g/dL (11.5-15.3); Lymphocytes # 2.2 10^3/uL (0.8-4.8); Lymphocytes % 33.8 %; Mean Corpuscular Hemoglobin 30.2 pg (28.0-34.0); Mean Corpuscular Volume 91.5 fl (81-99); Monocytes # 0.6 10^3/uL (0.2-0.9); Monocytes % 9.5 %; Neutrophils # 3.36 10^3/uL (1.8-7.7); Neutrophils % 51.6 %; Nucleated Red Blood Cells % 0 %; Platelet Count 140 10^3/cmm (130-400); Red Blood Count 5.06 10^6/uL (4.1-5.3); Red Cell Distribution Width 13.5 % (12.1-15.1); White Blood Count 6.5 10^3/uL (4.0-10.0)
[2022-12-22 12:36] LABS: Add Urine Microscopic? NO; Charge for UA Resulting for Rev
[2022-12-22 12:37] LABS: Bilirubin Urine Neg (Negative); Blood Urine Neg (Negative); Glucose Urine UA Norm (Normal); Ketones Urine Negative (Negative); Leukocyte Esterase Urine Negative (Negative); Nitrate Urine Negative (Negative); Protein Urine Neg (Negative); Urine Appearance Clear (CLEAR); Urine Color Yellow (Yellow); Urobilinogen Urine Norm (Negative); pH Urine 5 (5-7)
[2022-12-22 12:48] LABS: Troponin(5th) Baseline 19 ng/L (0-10)
[2022-12-22 12:50] LABS: Alanine Aminotransferase 12 U/L (0-33); Albumin Level 4.2 g/dL (3.5-5.2); Alkaline Phosphatase 109 U/L (35-105); Aspartate Amino Transferase 18 U/L (0-32); Blood Urea Nitrogen 19 mg/dL (8-23); Calcium 8.9 mg/dL (8.5-10.5); Carbon Dioxide 24 mmol/L (22-29); Chloride 101 mmol/L (98-107); Creatine Phosphokinase 71 U/L (26-192); Globulin 2.3 g/dL (1.3-4.6); Glucose 95 mg/dL (65-115); Osmolality Calculated 286 mOsm/kg (285-295); Sodium 137 mmol/L (136-145); Total Bilirubin 0.8 mg/dL (0.15-1.2); Total Protein 6.5 g/dL (6.6-8.7)
[2022-12-22 12:57] LABS: Anion Gap 16.5 (5-19); Potassium 4.5 mmol/L (3.5-5.1)
--- NOTE | 2022-12-22 12:57 | XRR_ITS ---
PROCEDURE INFORMATION: Exam: XR Chest Exam date and time: 12/22/2022 1:03 PM Age: 87 years old Clinical indication: Pain; Angina pectoris; Additional info: Chest pain TECHNIQUE: Imaging protocol: Radiologic exam of the chest. Views: 1 view. COMPARISON: 1. CR XR chest 1V portable [id number] 02/12/2021 6:[address] angio chest PE protcl [id number] 02/12/2021 7:28 PM FINDINGS: Tubes, catheters and devices: Dual lead pacemaker with left chest generator and stable lead positioning. Multiple mediastinal surgical clips. Lungs: Unremarkable. No consolidation. Pleural spaces: Unremarkable. No substantial pleural effusion. No pneumothorax. Heart/Mediastinum: Prosthetic aortic valve. Enlarged cardiac silhouette. Vasculature: Aortic arch calcification. Bones/joints: Multiple median sternotomy wires. Degenerative changes along the spine and shoulders. Intraperitoneal space: Right upper abdomen surgical clips. XR/XR chest 1V portable [id number] IMPRESSION: 1. No acute pulmonary findings. 2. Enlarged cardiac silhouette with postsurgical changes. Correlate with cardiac evaluation, to include consideration for echocardiography.
[2022-12-22] MEDS: isosorbide mononitrate ER 60 mg Tablet 120 MG PO (12:59)
[2022-12-22] MEDS: FUROsemide 20 mg Tablet PO (12:59)
[2022-12-22] MEDS: lisinopril 10 mg Tablet 5 MG PO (12:59)
[2022-12-22 13:02] VITALS: BP 164/67; PULSE 65; RESP 16; O2SAT 98
[2022-12-22 14:00] VITALS: BP 130/76; PULSE 71; RESP 17; O2SAT 95
--- NOTE | 2022-12-22 14:16 | ECG_ITS ---
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 Measurements Intervals [place] Rate: 75 P: 24 AL: 134 QRS: -51 QRSD: 132 T: 41 QT: 424 QTc: 476 Interpretive Statements A sense V paced rhythm ELECTRONIC VENTRICULAR PACEMAKER ABNORMAL RHYTHM ECG Compared to ECG 12/22/2022 12:22:52 No significant changes Electronically Signed On 12-23-2022 3:51:56 CDT by Aby Delvalle M.D. [email or web address]., Ltd.[email or web address] [email or web address]/store/[id number]
[2022-12-22 14:49] LABS: Troponin 5 2HR 17.97 ng/L (0-10)
[2022-12-22 14:51] LABS: Troponin 5 2HR Delta -1.03 ABS# (0-10)
[2022-12-22 15:03] VITALS: BP 111/70; PULSE 77; O2SAT 94
--- NOTE | 2022-12-26 13:02 | DCPLANNER ---
Addendum entered by Liss Espino 01/09/23 10:51: this appointment was cancelled Original Note: manager photo called patient due to no primary care physician - patient stated that she would like to get established at the [facility]. manager photo called the [facility] - a follow up appointment was scheduled for Friday, December 30, 2022 at 2:00 with Linh Ramirez. manager photo gave patient the appointment information.
== END 2022-12-22 16:11 | disposition home or self-care (01) ==
PROVIDERS: Emergency Provider Family Medicine
DX: R07.89 Other chest pain (principal); I10 Essential (primary) hypertension; I25.10 Atherosclerotic heart disease of native coronary artery without angina pectoris
CPT/HCPCS: 70450; 71045; 80053; 81003; 82550; 84484; 85025; 93005; 99285

== ENCOUNTER 2023-11-21 18:32 | Emergency (ER) | payer MEDICARE, OTHER, SELFPAY ==
[2023-11-21 18:38] VITALS: BP 195/88; PULSE 71; RESP 19; TEMP 36.6; O2SAT 96; BMI 32.8
--- NOTE | 2023-11-21 18:50 | XRR_ITS ---
PROCEDURE INFORMATION: Exam: XR Chest Exam date and time: 11/21/2023 7:32 PM Age: 88 years old Clinical indication: Chest pressure; Prior surgery; Surgery date: 6+ months; Surgery type: Cabg/pacemaker; Patient HX: Chest pain TECHNIQUE: Imaging protocol: Radiologic exam of the chest. Views: 1 view. COMPARISON: CR XR chest 1V portable [id number] 12/22/2022 1:03 PM FINDINGS: Tubes, catheters and devices: Two lead pacemaker device. Lungs: There are hazy opacities in the mid to lower left lung field. Pleural spaces: Unremarkable. No pleural effusion. No pneumothorax. Heart/Mediastinum: Unremarkable. No cardiomegaly. Vasculature: There is an IVC filter in place. Bones/joints: There are degenerative changes across the acromioclavicular and glenohumeral joints. Organs: Clips are present in the right upper quadrant consistent with prior cholecystectomy. Other findings: There are post-sternotomy changes and postoperative changes overlying the mediastinum. XR/XR chest 1V portable [id number] IMPRESSION: Nonspecific hazy opacities in the mid to lower left lung field.
--- NOTE | 2023-11-21 18:50 | ECG_ITS ---
[facility] Test Date: 2023-11-21 Pat Name: Linh Mares Department: Room: Gender: Female Psychological Anthropologist: : 1935 Requested By: Byron Sandoval Order Number: [id number] Jimenez MD: Saeid Marquez M.D. Measurements Intervals [place] Rate: 72 P: 5 [place]: 170 QRS: -36 QRSD: 136 T: 68 QT: 444 QTc: 488 Interpretive Statements ELECTRONIC VENTRICULAR PACEMAKER ABNORMAL RHYTHM ECG Compared to ECG 12/22/2022 14:46:47 No significant changes Electronically Signed On 11-22-2023 13:29:21 CDT by Saeid Marquez M.D. [id number]
[2023-11-21 19:21] VITALS: BP 175/100; PULSE 70; RESP 24; O2SAT 98
--- NOTE | 2023-11-21 19:21 | W.ED.CHESTPA ---
HPI - Chest Pain General: Chief Complaint: Chest Pain Stated Complaint: CHEST PAIN Time Seen by Provider: 11/21/23 18:44 History of Present Illness: 88-year-old female with unknown cardiac history, although she does not have a pacemaker. She presents with chest discomfort that was sharp and left-sided. It does not seem to worsen with cough or with deep breathing. She notes that she felt generally weak when she woke up this morning. Yesterday was a good day she says. Pain seemed to improve after taking 1 nitroglycerin at home. She is not in pain currently. She does endorse some mild, not on productive cough. Associated symptoms: Deny abdominal pain, dyspnea, fever(s), nausea, palpitations or vomiting Review of Systems Const: Denies: fever(s), chills or body aches Eyes: Denies: change in vision Card: Denies: palpitations Resp: Denies: dyspnea or wheezing GI: Denies: abdominal pain, nausea, vomiting, diarrhea or hematochezia : Denies: difficulty voiding Skin/Breast: Denies: rash Neuro: Denies: headache(s), weakness in extremities, dizziness or confusion PFS ED PFSH: Medical History Aneurysm, thoracic aortic CAD (coronary artery disease) Hypertension Social History Smoking and tobacco/nicotine status: never used tobacco/nicotine Physical Exam Const: COMMON NORMALS: no acute distress GENERAL APPEARANCE: cooperative and frail appearing (Mild); not ill appearing HENMT: COMMON NORMALS: normocephalic, atraumatic and Normal external nose present HEAD & SCALP: normocephalic and atraumatic FACE & SINUS: normal facial exam and face symmetric NOSE: Normal external nose present Eye: COMMON NORMALS: Equal, round and reactive pupils present and EOMs intact bilaterally PUPIL: Yes Equal, round and reactive pupils present Neck/C-Spine: GENERAL: Yes trachea midline Chest: CHEST: Yes Symmetrical chest wall rise Resp: COMMON NORMALS: normal respiratory effort, No retractions, No use of accessory muscles and clear to auscultation bilaterally AUSCULTATION: clear to auscultation bilaterally Cardio: COMMON NORMALS: regular rate and regular rhythm RATE: regular rate RHYTHM: regular rhythm GI: COMMON NORMALS: Normal to inspection, nondistended, normoactive bowel sounds present Extremity: COMMON NORMALS: no pedal edema Neuro: JOSE COMA SCALE: document GCS findings Jose coma scale eye opening: Spontaneous Jose coma scale verbal response: Orientated [place] coma scale motor response: Obey commands Jose coma scale total score: 15 SENSORY EXAM: Yes extremities (intact) Psych: COMMON NORMALS: speech normal SPEECH: Yes normal speech Skin: COMMON NORMALS: no rashes or lesions noted GENERAL SKIN EXAM: no rashes or lesions noted Course Vital Signs: Vital signs: Vital Signs Temperature 97.9 F 11/21/23 18:38 Pulse Rate 61 11/21/23 21:27 Respiratory Rate 21 H 11/21/23 21:27 Blood Pressure 142/86 11/21/23 21:27 Pulse Oximetry 94 11/21/23 21:27 Oxygen Delivery Me thod Room Air 11/21/23 21:27 MDM - Chest Pain Medical Decision Making 88-year-old female presenting with chest discomfort. Initially, she was quite hypertensive. She was given Vasotec and labetalol for this, with improvement in her blood pressure to near normal parameters. EKG is without ST wave changes. Hemoglobin is 15. Creatinine is 1.2. X-ray shows nonspecific hazy opacities, 2-hour delta troponin is 1. She is wanting to go home, quite adamantly. She will be discharged. Close observation of blood pressure, to take her medication appropriately, and outpatient follow-up. Return for worsening symptoms. Lab Data 11/21/23 19:23 11/21/23 19:23 Radiology Impressions Chest X-Ray 11/21/23 18:50 IMPRESSION: Nonspecific hazy opacities in the mid to lower left lung field. Laboratory Results WBC 5.88 10^3/uL (3.29-11.43) 11/21/23 19: RBC 4.96 10^6/uL (3.85-5.65) 11/21/23 19:23 Hgb 15.00 g/dL (11.27-16.99) 11/21/23 19:23 Hct 48.1 % (36-47) H 11/21/23 19:23 MCV 97.0 fl (85-98) 11/21/23 19: MCH 30.2 pg (27-33) 11/21/23 19: MCHC 31.2 g/dL (30-55) 11/21/23 19: RDW 13.3 % (12.1-15.1) 11/21/23 19: Plt Count 154 10^3/cmm (157-399) L 11/21/23 19:23 MPV 10.5 fL (7.4-10.4) H 11/21/23 19:23 Neut % (Auto) 45.1 % 11/21/23 19:23 Lymph % (Auto) 38.3 % 11/21/23 19:23 [place] % (Auto) 10.0 % 11/21/23 19:23 Eos % (Auto) 4.9 % 11/21/23 19: Baso % (Auto) 1.5 % 11/21/23 19: Neut # (Auto) 2.65 10^3/uL (1.8-7.7) 11/21/23 19:23 Lymph # (Auto) 2.3 10^3/uL (0.8-4.8) 11/21/23 19:23 [place] # (Auto) 0.6 10^3/uL (0.2-0.9) 11/21/23 19:23 Eos # (Auto) 0.3 10^3/uL (0.0-0.8) 11/21/23 19:23 Baso # (Auto) 0.1 10^3/uL (0.0-0.1) 11/21/23 19: Nucleated RBC % (auto) 0 % 11/21/23: Nucleated RBCs # 0.0 /100WBC 11/21/23 19: PT 13.40 SECONDS (12.1-14.9) 11/21/23 19:23 INR 0.99 (0.8-1.2) 11/21/23 19:23 APTT 26.1 SECONDS (23.9-36.7) 11/21/23 19:23 Sodium 140 mmol/L (136-145) 11/21/23 19:23 Potassium 4.3 mmol/L (3.5-5.1) 11/21/23 19:23 Chloride 105 mmol/L (98-107) 11/21/23 19:23 Carbon Dioxide 24 mmol/L (22-29) 11/21/23 19:23 Anion Gap 15.3 (5-19) 11/21/23 19:23 BUN 19 mg/dL (8-23) 11/21/23 19:23 Creatinine 1.2 mg/dL (0.5-0.9) H 11/21/23 19:23 GFR Calculation Not Reportable 11/21/23 19:23 Glucose 82 mg/dL (65-115) 11/21/23 19:23 Calculated Osmolality 291 mOsm/kg (285-295) 11/21/23 19:23 Calcium 8.9 mg/dL (8.5-10.5) 11/21/23 19:23 Total Bilirubin 0.5 mg/dL (0.15-1.2) 11/21/23 19:23 AST 14 U/L (0-32) 11/21/23 19:23 ALT 9 U/L (0-33) 11/21/23 19:23 Alkaline Phosphatase 116 U/L (35-105) H 11/21/23 19:23 Creatine Kinase 59 U/L (26-192) 11/21/23 19:23 Troponin T Baseline 13 ng/L (0-10) H 11/21/23 19:23 Troponin T 120 Minute 14.07 ng/L (0-10) H 11/21/23 21:26 Delta Troponin T 1.07 ABS# (0-10) 11/21/23 21:26 NT-Pro-B Natriuret Pep 1416 pg/mL (0-450) H 11/21/23 19:23 Total Protein 6.6 g/dL (6.6-8.7) 11/21/23 19:23 Albumin 4.2 g/dL (3.5-5.2) 11/21/23 19:23 Globulin 2.4 g/dL (1.3-4.6) 11/21/23 19:23 Urine Color Yellow (Yellow) 11/21/23 18:49 Urine Appearance Clear (CLEAR) 11/21/23 18:49 Urine pH 5 (5-7) 11/21/23 18:49 Ur Specific [place] 1.010 (1.005-1.030) 11/21/23 18:49 Urine Protein Neg (Negative) 11/21/23 18:49 Urine Glucose (UA) Norm (Normal) 11/21/23 18:49 Urine Ketones Negative (Negative) 11/21/23 18:49 Urine Blood Neg (Negative) 11/21/23 18:49 Urine Nitrate Negative (Negative) 11/21/23 18:49 Urine Bilirubin Neg (Negative) 11/21/23 18:49 Urine Urobilinogen Neg mg/dL (Negative) 11/21/23 18:49 Ur Leukocyte Esterase 1+ (Negative) H 11/21/23 18:49 Urine RBC 0-4 /hpf (0-2) H 11/21/23 18:49 Urine WBC 5-10 /hpf (0-5) H 11/21/23 18:49 Ur Squamous Epith Cells 0-4 /hpf (0-5) H 11/21/23 18:49 Amorphous Sediment Not Reportable 11/21/23 18:49 Urine Bacteria 1+ /hpf (NONE) H 11/21/23 18:49 All radiology interpretation(s) finalized by discharge Discharge Plan Discharge Patient Disposition: Home Clinical Impression: Chest pain, Hypertension Condition: Stable Prescriptions: No Action Xarelto 15 mg tablet 15 mg PO DAILY Rx Instructions: must administer with evening meal tizanidine 2 mg tablet 2 mg PO BEDTIME PRN (Reason: Muscle Spasm) tolterodine [Detrol LA] 4 mg capsule,extended release 24hr 4 mg PO DAILY isosorbide mononitrate 120 mg tablet extended release 24 hr 120 mg PO DAILY potassium chloride 20 mEq tablet,ER particles/crystals 20 meq PO DAILY trazodone 100 mg Tablet 100 mg PO BEDTIME folic acid 1 mg tablet 1 mg PO DAILY montelukast 10 mg tablet 10 mg PO DAILY furosemide 20 mg tablet 20 mg PO DAILY multivitamin Tablet 1 tab PO DAILY atorvastatin 20 mg tablet 20 mg PO DAILY Qty: 30 0RF lisinopril 5 mg tablet 5 mg PO DAILY Qty: 30 0RF aspirin 81 mg tablet,delayed release (DR/EC) 81 mg PO DAILY Qty: 30 0RF Discharge Orders: Discharge ED (Routine); Ordered 11/21/23 Ordered By: Byron Stevensno Patient Instructions: Chest Pain (ED), Hypertension (ED), Opioid Safety, Pain Management Activity Restrictions/Additional Instructions: Return immediately for return of chest pain, any shortness of breath, fever, other concerning symptoms. Check your blood pressure twice daily, and report numbers to your physician. Follow-up with your doctor next week. Coding Level of Care Code ED [employer] for Ross Ladd
[2023-11-21 19:32] LABS: Basophils # 0.1 10^3/uL (0.0-0.1); Basophils % 1.5 %; Eosinophils # 0.3 10^3/uL (0.0-0.8); Eosinophils % 4.9 %; Hematocrit 48.1 % (36-47); Lymphocytes # 2.3 10^3/uL (0.8-4.8); Lymphocytes % 38.3 %; Mean Corpuscular HGB Conc 31.2 g/dL (30-55); Mean Corpuscular Hemoglobin 30.2 pg (27-33); Mean Platelet Volume 10.5 fL (7.4-10.4); Monocytes # 0.6 10^3/uL (0.2-0.9); Neutrophils # 2.65 10^3/uL (1.8-7.7); Neutrophils % 45.1 %; Nucleated Red Blood Cells % 0 %; Platelet Count 154 10^3/cmm (157-399); Red Blood Count 4.96 10^6/uL (3.85-5.65); Red Cell Distribution Width 13.3 % (12.1-15.1); White Blood Count 5.88 10^3/uL (3.29-11.43)
[2023-11-21 19:43] LABS: INR 0.99 (0.8-1.2); Partial Thromboplastin Time 26.1 SECONDS (23.9-36.7)
[2023-11-21 19:43] LABS: Bacteria Urine 1+ /hpf; Bilirubin Urine Neg (Negative); Blood Urine Neg (Negative); Glucose Urine UA Norm (Normal); Ketones Urine Negative (Negative); Leukocyte Esterase Urine 1+ (Negative); Nitrate Urine Negative (Negative); Protein Urine Neg (Negative); RBC Urine 0-4 /hpf (0-2); Squamous Epithelial Cell Urine 0-4 /hpf (0-5); Urine Appearance Clear (CLEAR); Urine Color Yellow (Yellow); Urobilinogen Urine Neg (Negative); pH Urine 5 (5-7)
[2023-11-21] MEDS: labetalol 5 mg/mL SDV 20mL 10 MG IVP (19:48)
[2023-11-21 19:49] LABS: Troponin(5th) Baseline 13 ng/L (0-10)
[2023-11-21] MEDS: enalaprilat 2.5 mg/2 mL SDV 1.25 MG IVP (19:51)
[2023-11-21 19:57] VITALS: BP 185/98; PULSE 64; RESP 15; O2SAT 95
[2023-11-21 19:58] LABS: Alanine Aminotransferase 9 U/L (0-33); Albumin Level 4.2 g/dL (3.5-5.2); Alkaline Phosphatase 116 U/L (35-105); Anion Gap 15.3 (5-19); Aspartate Amino Transferase 14 U/L (0-32); Blood Urea Nitrogen 19 mg/dL (8-23); Calcium 8.9 mg/dL (8.5-10.5); Carbon Dioxide 24 mmol/L (22-29); Chloride 105 mmol/L (98-107); Creatine Phosphokinase 59 U/L (26-192); Creatinine Clr Calc Pharmacy 32.0078; Globulin 2.4 g/dL (1.3-4.6); Glucose 82 mg/dL (65-115); NT Pro B Type Natriuretic Pept 1416 pg/mL (0-450); Osmolality Calculated 291 mOsm/kg (285-295); Potassium 4.3 mmol/L (3.5-5.1); Sodium 140 mmol/L (136-145); Total Bilirubin 0.5 mg/dL (0.15-1.2); Total Protein 6.6 g/dL (6.6-8.7)
--- NOTE | 2023-11-21 20:50 | ECG_ITS ---
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 Measurements Intervals [place] Rate: 61 P: 158 CO: 178 QRS: -47 QRSD: 151 T: 75 QT: 480 QTc: 484 Interpretive Statements ELECTRONIC ATRIAL PACEMAKER ELECTRONIC VENTRICULAR PACEMAKER ABNORMAL RHYTHM ECG Compared to ECG 11/21/2023 18:38:51 No significant changes Electronically Signed On 11-22-2023 16:13:03 CDT by Saeid Marquez M.D. [id number]
[2023-11-21 21:27] VITALS: BP 142/86; PULSE 61; RESP 21; O2SAT 94
[2023-11-21 21:48] LABS: Troponin 5 2HR 14.07 ng/L (0-10); Troponin 5 2HR Delta 1.07 ABS# (0-10)
== END 2023-11-21 21:57 | disposition home or self-care (01) ==
PROVIDERS: Emergency Provider Emergency Medicine
DX: R07.9 Chest pain, unspecified (principal); I10 Essential (primary) hypertension; Z79.82 Long term (current) use of aspirin; I25.10 Atherosclerotic heart disease of native coronary artery without angina pectoris
CPT/HCPCS: 36415; 71045; 80053; 81001; 82550; 83880; 84484; 85025; 85610; 85730; 93005; 96374; 96375; 99285; J3490

== ENCOUNTER → 2024-08-15 14:21 | Outpatient (BNVA) | payer MEDICARE, OTHER, SELFPAY | PROVIDERS: Visit Provider Podiatrist Foot & Ankle Surgery | DX: M79.671 Pain in right foot (principal); S90.851A Superficial foreign body, right foot, initial encounter; S91.341A Puncture wound with foreign body, right foot, initial encounter; W25.XXXA Contact with sharp glass, initial encounter; Z18.81 Retained glass fragments; L03.115 Cellulitis of right lower limb | CPT/HCPCS: 10121; 73630; 99204; J9999 ==

== ENCOUNTER → 2024-08-22 13:50 | Outpatient (BNVA) | payer MEDICARE, OTHER, SELFPAY | PROVIDERS: Visit Provider Podiatrist Foot & Ankle Surgery | DX: S90.851D Superficial foreign body, right foot, subsequent encounter (principal); S91.331D Puncture wound without foreign body, right foot, subsequent encounter; Z18.81 Retained glass fragments; L03.115 Cellulitis of right lower limb; W25.XXXD Contact with sharp glass, subsequent encounter | CPT/HCPCS: 99213 ==